=== PATIENT | male | born 1990 | race African-American/Black ===

== ENCOUNTER 2017-07-27 16:08 | Emergency (ER) | payer MEDICAID ==
[~2017-07-27] VITALS: Ht 180.3 cm; Wt 91.0 kg
[2017-07-27 16:22] VITALS: BP 142/93
== END 2017-07-27 22:05 | disposition left against medical advice (07) ==
LOC: ER 16:08
DX: M79.645 Pain in left finger(s) (principal); F17.200 Nicotine dependence, unspecified, uncomplicated; F12.10 Cannabis abuse, uncomplicated
CPT/HCPCS: 99281

== ENCOUNTER 2017-08-05 21:24 | Emergency (ER) | payer MEDICAID ==
[~2017-08-05] VITALS: Ht 180.3 cm; Wt 93.0 kg
[2017-08-05 22:05] VITALS: BP 155/88
== END 2017-08-05 23:28 | disposition home or self-care (01) ==
LOC: ER 22:33
DX: B30.9 Viral conjunctivitis, unspecified (principal); J06.9 Acute upper respiratory infection, unspecified; F17.200 Nicotine dependence, unspecified, uncomplicated; F12.10 Cannabis abuse, uncomplicated
CPT/HCPCS: 99281

== ENCOUNTER 2017-09-26 10:06 | Emergency (ER) | payer MEDICAID ==
[~2017-09-26] VITALS: Ht 180.3 cm; Wt 91.0 kg
[2017-09-26 10:24] VITALS: BP 159/98
== END 2017-09-26 14:16 | disposition left against medical advice (07) ==
LOC: ER 13:14
DX: Z53.21 Procedure and treatment not carried out due to patient leaving prior to being seen by health care provider (principal)
CPT/HCPCS: Z7610 ×3

== ENCOUNTER 2017-10-03 16:59 | Emergency (ER) | payer MEDICAID | END 2017-10-03 20:50 | disposition left against medical advice (07) | LOC: ER 19:30 | DX: Z53.21 Procedure and treatment not carried out due to patient leaving prior to being seen by health care provider (principal) ==

== ENCOUNTER 2017-10-05 22:22 | Emergency (ER) | payer MEDICAID | END 2017-10-06 01:10 | disposition left against medical advice (07) | LOC: ER 23:49 | DX: Z76.0 Encounter for issue of repeat prescription (principal); Z53.21 Procedure and treatment not carried out due to patient leaving prior to being seen by health care provider ==

== ENCOUNTER 2017-10-28 09:27 | Emergency (ER) | payer MEDICAID ==
[~2017-10-28] VITALS: Ht 167.6 cm; Wt 65.0 kg
[2017-10-28 09:34] VITALS: BP 135/95
[2017-10-28] MEDS ORDERED: BACITRACIN ZINC OINT UDPKT TOP ONE (11:00)
[2017-10-28] MEDS ORDERED: TETANUS, DIPHTHERIA, PERTUSSIS VAC/PF 0.5ML (>7YR OLD) IM ONE (11:00)
== END 2017-10-28 11:14 | disposition home or self-care (01) ==
LOC: ER 09:27
DX: S20.319A Abrasion of unspecified front wall of thorax, initial encounter (principal); S00.81XA Abrasion of other part of head, initial encounter; Y08.89XA Assault by other specified means, initial encounter; Y93.89 Activity, other specified; Y92.89 Other specified places as the place of occurrence of the external cause; Y99.8 Other external cause status
CPT/HCPCS: 90471; 90715; 99283

== ENCOUNTER 2017-10-31 16:52 | Emergency (ER) | payer MEDICAID ==
[~2017-10-31] VITALS: Ht 167.6 cm; Wt 100.0 kg
[2017-10-31 17:12] VITALS: BP 140/78
[2017-10-31] MEDS ORDERED: ACETAMINOPHEN 325MG TABLET PO ONE (17:30)
[2017-10-31 18:28] LABS: CLARITY URINE CLEAR (CLEAR); COLOR URINE YELLOW (YELLOW); KETONES URINE NEGATIVE (NEGATIVE); LEUKOCYTE ESTERASE URINE NEGATIVE (NEGATIVE); NITRITE URINE NEGATIVE (NEGATIVE); OCCULT BLOOD URINE NEGATIVE (NEGATIVE); PROTEIN URINE NEGATIVE (NEGATIVE); SPECIFIC GRAVITY URINE 1.013 (1.005-1.030); UROBILINOGEN URINE 0.2 E.U./dL (0.2-1.0)
[2017-10-31 19:34] LABS: BASOPHILS % 0.8 % (0.0-2.0); EOSINOPHILS % 2.8 % (0.0-5.0); HEMATOCRIT. 41.4 % (42.0-52.0); HEMOGLOBIN. 13.8 g/dL (14.0-18.0); MEAN CORPUSCULAR HEMOGLOBIN 31.4 pg (28.0-32.0); MEAN CORPUSCULAR VOLUME 94.6 fL (80.0-94.0); MEAN PLATELET VOLUME 9.1 fl (7.4-10.4); MONOCYTES % 10.7 % (2.0-8.0); NEUTROPHILS % 46.7 % (40.0-76.0); PLATELET 218 x1000/uL (130-400); RED BLOOD CELL COUNT 4.38 mill/uL (4.7-6.1); RED CELL DISTRIBUTION WIDTH 12.3 % (11.6-14.6)
[2017-10-31 19:37] LABS: CHLORIDE 103 mEq/L (98-107); INR 1.1; PROTHROMBIN TIME 10.9 sec (9.4-11.6)
== END 2017-10-31 23:11 | disposition left against medical advice (07) ==
LOC: ER 22:44
DX: R10.84 Generalized abdominal pain (principal)
CPT/HCPCS: 36415; 80053; 81003; 81025; 83690; 85025; 85610; 99284

== ENCOUNTER 2018-06-18 02:27 | Emergency (ER) | payer MEDICAID, MEDICARE ==
[~2018-06-18] VITALS: Ht 180.3 cm; Wt 91.0 kg
[2018-06-18 02:34] VITALS: BP 138/90
== END 2018-06-18 03:15 | disposition left against medical advice (07) ==
LOC: ER 02:27
DX: L02.412 Cutaneous abscess of left axilla (principal); L02.411 Cutaneous abscess of right axilla; Z53.21 Procedure and treatment not carried out due to patient leaving prior to being seen by health care provider

== ENCOUNTER 2018-07-03 07:26 | Emergency (ER) | payer MEDICAID, MEDICARE ==
[~2018-07-03] VITALS: Ht 185.4 cm; Wt 90.0 kg
[2018-07-03 07:29] VITALS: BP 141/75
== END 2018-07-03 10:20 | disposition left against medical advice (07) ==
LOC: ER 07:40
DX: Z53.21 Procedure and treatment not carried out due to patient leaving prior to being seen by health care provider (principal)

== ENCOUNTER 2021-11-03 00:40 | Emergency (ER) | payer OTHER ==
[~2021-11-03] VITALS: Ht 180.3 cm; Wt 95.0 kg
[2021-11-03 01:07] VITALS: BP 165/83
[2021-11-03] MEDS: HYDROCODONE/ACETAMINOPHEN 5/325MG TABLET PO ONE ×2 (01:45→01:50)
[2021-11-03] MEDS ORDERED: IBUP-2029 MT (02:30)
== END 2021-11-03 04:02 | disposition home or self-care (01) ==
LOC: ER 00:40
DX: M79.641 Pain in right hand (principal); I10 Essential (primary) hypertension
CPT/HCPCS: 73130; 99283

== ENCOUNTER 2023-03-21 22:46 | Emergency (ER) | payer MEDICAID, OTHER ==
[~2023-03-21] VITALS: Ht 180.3 cm; Wt 95.5 kg
[~2023-03-21 22:46] MED LIST: IBUP-2029 MT
[2023-03-21 23:10] VITALS: O2SAT 100
[2023-03-22 00:02] LABS: BASOPHILS % 0.9 % (0.0-2.0); EOSINOPHILS % 1.2 % (0.0-5.0); HEMATOCRIT. 35.6 % (42.0-52.0); HEMOGLOBIN. 11.6 g/dL (14.0-18.0); MEAN CORPUSCULAR HGB CONC 32.5 g/dL (31.0-37.0); MEAN CORPUSCULAR VOLUME 92.4 fL (80.0-94.0); MEAN PLATELET VOLUME 8.6 fl (7.4-10.4); MONOCYTES % 7.5 % (2.0-8.0); NEUTROPHILS % 66.4 % (40.0-76.0); PLATELET 293 x1000/uL (130-400); RED BLOOD CELL COUNT 3.85 mill/uL (4.7-6.1); RED CELL DISTRIBUTION WIDTH 12.3 % (11.6-14.6); WHITE BLOOD COUNT 4.9 x1000/uL (4.5-11.0)
[2023-03-22 00:46] LABS: CHLORIDE 105 mEq/L (98-107); INDEX HEMOLYSI 1 (1-3); INDEX ICTERIC 1 (1-4); INDEX LIPEMIC 1 (1-3); SODIUM 137 mEq/L (136-145)
[2023-03-22 01:00] LABS: ALANINE AMINOTRANSFERASE 23 IU/L (13-61); ALBUMIN 3.4 g/dL (3.4-5.0); ASPARTATE AMINOTRANSFERASE 22 IU/L (15-37); BILIRUBIN TOTAL 0.9 mg/dL (0.1-1.0); CALCIUM 8.5 mg/dL (8.5-10.1); CARBON DIOXIDE 24 mEq/L (21-32); CREATININE 0.8 mg/dL (0.6-1.3); GLUCOSE 88 mg/dL (70-105); NT PRO B-TYPE NATRIURETIC PEP 29 pg/mL (5-125); PROTEIN TOTAL 7.6 g/dL (6.0-8.3); UREA NITROGEN BLOOD 9 mg/dL (7-21)
[2023-03-22 01:44] VITALS: BP 165/103; PULSE 98; RESP 17; TEMP 98
== END 2023-03-22 02:08 | disposition home or self-care (01) ==
LOC: ER 22:46
DX: M79.89 Other specified soft tissue disorders (principal)
CPT/HCPCS: 36415; 71045; 80053; 83880; 85025; 93970; 99284